=== PATIENT | female | born 1995 | race Caucasian/White ===

== ENCOUNTER 2017-08-09 10:10 | Emergency (ER) | payer OTHER, SELFPAY ==
[2017-08-09 10:39] VITALS: BP 138/84; PULSE 83; RESP 18; TEMP 36.8; O2SAT 100; BMI 20.7
[2017-08-09 10:42] LABS: UTC Influenza A Antigen Positive (Negative); UTC Influenza B Antigen Negative (Negative)
--- NOTE | 2017-08-09 11:08 | HMH.EDUTC ---
[facility] Disposition Clinical Impression: Influenza A Disposition: Home, Self-Care Condition on Discharge: Good Instructions: DI for Influenza -- Adult Additional Instructions: * Too late to start tamiflu. Most effective when started within 48 hours of symptoms onset. * Lots of rest * Increase fluids, water, gatorade, powerade, pedialyte if /toddler/child * Monitor Temp. Tylenol every 4 hours as needed no more then 5 times a day or 4000mg in 24 hours and/or ibuprofen every 6 hours as needed no more then 3200mg in 24 hours (as long as your primary care doctor has told you that it is ok to take both) for fever/aches/pain. ER if fever no less than 101 despite tylenol and Ibuprofen * You (or your child) are contagious until no fever, aches, chills x 24 hours without medication for symptoms. Follow up IMMEDIATELY for new or worsening symptoms, improvement followed by suddenly feeling worse OR no noticeable improvement over the next 48-72 hours. 911 for difficulty breathing Referrals: Sagar Moffett MD [Primary Care Provider] - (IMMEDIATELY for new or worsening symptoms, improvement followed by suddenly feeling worse OR no noticeable improvement over the next 48-72 hours. 911 for difficulty breathing ) Forms: Work/School Release Time of Disposition: 11:09 Medical Decision Making Vital Signs: 08/09/17 10:39 Temperature 98.3 F Temperature Source Temporal Artery Scan Pulse Rate [Brachial] 83 Respiratory Rate 18 Blood Pressure [Right Arm] 138/84 Blood Pressure Mean [Right Arm] 102 Blood Pressure Source [Right Arm] Automatic Cuff Blood Pressure Position [Right Arm] Sitting 02 Sat by Pulse Oximetry 100 Oxygen Delivery Method Room Air - Lab Data Lab Results 08/09/17 10:35: Influenza Type A Ag Positive A, Influenza Type B Ag Negative - Prem Inquiry Pt receiving controlled substance: No [facility] HPI - General Stated complaint: fever body aches dizzy cough runny nose sneezing Time Seen by Provider: 08/09/17 10:45 Mode of Arrival: Ambulatory Source of Information: Patient Limitations: No Limitations Description of Symptoms (Recalled from Triage Doc. by RN): FEVER, BODY ACHES, COUGH HEENT Symptoms (Recalled from RN notes): Yes Resp Symptoms (Recalled from RN notes): Yes Skin Symptoms (Recalled from RN notes): No MS Symptoms (Recalled from RN notes): No Functional Status (Recalled from RN notes): NA - History of Present Illness Provider Complaint: c/o I think I have the flu . Fever Tmax 102, aches, chills, nasal drainage, prod cough, yellow sputum since Saturday, 4 days ago. Stewart recently had the flu and only missed one day work. Dayquil/Nyquil help manage symptoms. - Related Data Home Medications Medication Instructions Recorded Confirmed citalopram 20 mg tablet 20 mg PO QDAY MDD 20MG 08/09/17 08/09/17 ergocalciferol (vitamin D2) 50,000 50,000 unit PO QWEEK MDD 0 08/09/17 08/09/17 unit capsule Allergies Allergy/AdvReac Type Severity Reaction Status Date / Time No Known Allergies Allergy Verified 08/09/17 10:44 Nuts Allergy Intermediate Hives Uncoded 08/09/17 09:04 - Worker's Comp Is this a Worker's Comp case?: No H History I have reviewed the patient's past medical history: Yes Medical History: Denies:: Diabetes Mellitus Type 1, Diabetes Mellitus Type 2, Hypertension Comment: frequent strep throat, bronchitis and upper resp infections Laterality Cases: Bilateral: Tonsillectomy Amputation: No Fractures: No - *Social History Smoking Status: Current every day smoker Tobacco Type: cigarettes # Packs/Day (cigarettes): 20 Alcohol Intake: never Alcohol Intake Frequency:: a few times a week Substance Use Type: denies use - Psychiatric History Expresses thoughts of harming self/others: None Suicide Plan Description: No Plan *Family Hx:: Diabetes ROS Obtained: Yes Appropriate systems reviewed & no add complaints except as noted - Constitutional Reports anorexia (minima
== END 2017-08-09 11:13 | disposition home or self-care (01) ==
PROVIDERS: Emergency Provider Nurse Practitioner Family; Family Provider Family Medicine; PCP Family Medicine
DX: J10.1 Influenza due to other identified influenza virus with other respiratory manifestations (principal); F17.210 Nicotine dependence, cigarettes, uncomplicated
CPT/HCPCS: 87276; 87804; 99202

== ENCOUNTER → 2018-01-20 08:42 | Outpatient (POV) | payer OTHER, SELFPAY | PROVIDERS: Family Provider Family Medicine; PCP Family Medicine; Visit Provider Physician Assistant | DX: Z00.00 Encounter for general adult medical examination without abnormal findings (principal) ==

== ENCOUNTER 2024-12-15 14:20 | Outpatient (CLI) | payer BC, SELFPAY ==
--- NOTE | 2024-12-15 14:34 | US_ITS ---
PROCEDURE INFORMATION: Exam: US Right Breast, Complete US Left Breast, Complete Exam date and time: 12/15/2024 2:42 PM Age: 29 years old Clinical indication: Palpable abnormality in the left 2 o'clock axis 10 cm from the nipple TECHNIQUE: Imaging protocol: Complete ultrasound of all four quadrants of the right breast and the retroareolar regions, including ultrasound of the axilla when performed. Complete ultrasound of all four quadrants of the left breast and the retroareolar regions, including ultrasound of the axilla when performed. COMPARISON: No relevant prior studies available. FINDINGS: ULTRASOUND: Breast ultrasound findings: Sonographic images of both breasts including the retroareolar regions, all 4 quadrants and the axilla do not demonstrate any solid masses. Minimal subcentimeter cystic change is present in the right 2 o'clock axis 2 cm from the nipple and in the left 2 o'clock axis 3 cm from the nipple. No focal findings in the left 2 o'clock axis 10 cm from the nipple where the patient reports a palpable abnormality. No architectural distortion or acoustical shadowing. No skin thickening or axillary adenopathy. IMPRESSION: A skin marker should be placed over the area of palpable concern followed by a diagnostic unilateral mammogram with spot compression views for full evaluation of the patient's complaint of a palpable abnormality. ASSESSMENT: BI-RADS Category 0: Incomplete- Need Additional Imaging Evaluation
== END 2024-12-15 23:59 | disposition home or self-care (01) ==
LOC: RAD 14:22
PROVIDERS: PCP Family Medicine; Visit Provider Physician Assistant
DX: N63.31 Unspecified lump in axillary tail of the right breast (principal); N63.32 Unspecified lump in axillary tail of the left breast
CPT/HCPCS: 76641

== ENCOUNTER 2025-01-08 13:02 | Outpatient (CLI) | payer BC, SELFPAY ==
--- OUTSIDE RECORDS SUMMARY | 2025-01-08 13:07 | XMS_ITS | Data Portability ---
Author Organization [facility] Address [address] [place] [address] Assessment Encounter Date Assessment Date Assessment LastModified by Organization Details LastModified Time 07/06/2021 07/06/2021 Service was provided using telemedicine. The patient verbally consents to virtual services and the consent is documented in the medical record prior to using the service. Patient is located at car in [facility] Provider is located at medical clinic. Names and roles of all persons participating in telemedicine services include:Avinash Henderson, pt and Jayesh Hernandes MD, doc [email or web address] Not available 07/06/2021 16:17:20 Plan of Treatment Reminders Order Date Submit Date Provider Last Modified By Organization Details Last Modified Time Details Appointments None recorde d. Lab rapid flu (A+B) 2023 [facility], [address] [place] [address] , [place], [address], 4 11:29:33 rapid strep group A, throat 2023 024 [facility], [address] [place] [address] , [place], [address], 4 11:29:23 rapid SARS CoV + SARS CoV 2 Ag, QL IA, respira tory specime n 2023 024 [facility], [address] [place] [address] , [place], [address], 4 11:29:04 rapid strep group A, throat [address], [address] [place] [address] , [place], [address], 3 10:31:19 rapid SARS CoV + SARS CoV 2 Ag, QL IA, respira tory specime n [address], [address] [place] [address] , [place], [address], 3 10:31:20 rapid flu (A+B) [address], [address] [place] [address] , [place], [address], 3 10:31:22 amylase + lipase, serum 2021 022 [facility], [address], [address], [place], [address], 2 14:12:57 unliste d lab - H.pylor i,IgG/I gM abs 2021 [facility], [address], [address], [place], [address], 2 14:12:52 TSH + free T4, serum 2021 [facility], [address], [address], [place], [address], 2 14:12:51 T3, free, serum or plasma 2021 [facility], [address], [address], [place], [address], 2 14:13:00 CBC w/ auto diff 2021 [facility], [address], [address], [place], [address], 14:12:53 vitamin D, 25-hydr oxy, total, serum 2021 [facility], [address], [place] [address], [place], [address], 14:12:58 lipid panel, serum 2021 [facility], [address], [place] [address], [place], [address], 14:12:55 CMP, serum or plasma 2021 [facility], [address], [place] [address], [place], [address], 14:12:54 HbA1c (hemogl obin A1c), blood 2021 [facility], [address], [place] [address], [place], [address], 14:12:57 vitamin B12 + folate, serum or blood 2021 [facility], [address], [address], [place], [address], 14:12:56 iron + total iron-bi nding capacit y (TIBC), serum 2021 [facility], [address], [address], [place], [address], 14:12:55 ferriti n, serum or plasma 2021 [facility], [address], [place] [address], [place], [address], 07/21/202 2 14:12:59 rapid SARS CoV + SARS CoV 2 Ag, QL IA, respira tory specime n 2020 021 [facility], [address] [place] [address] , [place], [address], 1 16:20:51 rapid strep group A, throat 2020 021 [facility], [address] [place] [address] , [place], [address], 1 16:20:51 rapid flu (A+B) 2020 021 [facility], [address] [place] [address] , [place], [address], 1 16:20:51 Referral None recorde d. Procedures staple removal (PROC) 2022 023 [email or web address] Not available 3 17:13:54 Surgeries None recorde d. Imaging US, abdomen , complet e 2021 022 [facility], [address] [place] [address] , [place], [address], 2 11:38:10 Medication Orders amoxici llin 875 mg tablet 2023 024 [facility] #[id number], [address], [id number], 4 10:36:36 ondanse meghana 4 mg disinte grating tablet 2023 024 [facility] #31873, [address], [id number], 4 10:36:31 oseltam ivir 75 mg capsule 2022 024 [facility] #33194, [address], [id number], 4 10:33:22 ondanse meghana 4 mg disinte grating tablet 2022 023 [facility] #42590, [address], [id number], 3 10:40:21 topiram ate 25 mg tablet 2021 022 [facility] #95895, [address], [id number], 3 16:37:06 topiram ate 50 mg tablet 2021 022 [facility] #44612, [address], [id number], 3 16:37:11 amoxici llin 875 mg tablet 2020 021 [email or web address] [facility] #79688, [address], [id number], 2 09:01:47 Patient TargetsNo targets recorded. Patient Instructions Encounter Date Encounter Id Patient Instructions Last Modified By Organization Details Last Modified Time 07/06/2021 [id number] Plan for next steps: Rest and push fluids. Foods as tolerated. OTC's to use reviewed. She can use throat sprays and/or lozenges, along with Ibu, maybe alternating with Tylenol. Will call or RTC if no improvement in 7-10 days, or if symptoms worsen [email or web address] Not available 07/06/2021 16:20:20 Due to the natur e of telemedicine the ability to do a physical assessment was limited to what can be accomplished by patient directed video conferencing. Those limits are understood by the patient and myself. Impression is based on history, available information and physical findings accomplished with video assistance. Chronic disease/problem list/medication list reviewed and updated where indicated. Discussed diagnosis, plan including risks, benefits and options of treatment. PMH, FHx, SHx, Surgical Hx and preventive care review were addressed as documented today as part of this visit. Medication list was reviewed and adjusted as indicated. Medication requiring a refill was addressed. Risk and benefits of any new medications were discussed and all questions answered. Advised to call for new, worsening or persistent symptoms. Level of patient risk was of low complexity due to the documented nature of presentation, the information assessment required and the nature of the development of an evaluation and treatment plan as documented. [email or web address] Not available 07/06/2021 16:19:25 02/21/2022 [id number] Start Topamax as directed. PP will call with results of labs and US. If symptoms persist or worsen, call pp or seek medical attention. [email or web address] Not available 02/21/2022 10:40:46 07/24/2023 [id number] body mass index: care instructions [email or web address] Not available 07/24/2023 10:31:15 1) Go immediatel y to ER if worsening symptoms 2) Manage fever and/or aches and pains with rotation of Acetaminophen and Ibuprofen; cough/cold symtoms with OTC cough/cold/flu medications for symptomatic management 3) Maintain hydration with water, fruit juices, broth 4) Rest at home and do not go to public places until 7 days of illness 5) Use good hand hygiene and cover mouth to cough with tissues 6) Go to ER for any difficulty in breathing, chest pain, high fevers not controlled with medication and home remedies; RTC if worsening or no improvement [email or web address] Not available 07/24/2023 10:43:46 04/10/2024 [id number] fluids, meds as directed, tylenol. rtc if not improving in 2-3 days [email or web address] Not available 04/10/2024 10:49:06 Reason for Referral None Reported. Results Created Date Observation Date Name Description Value Unit Range Abnormal Flag Note LastModifiedBy Organization Detail LastModifiedTime 07/06/20 21 07/07/2021 SARS- COV-2 , DECLAN sars-cov-2, DECLAN Not Detect ed not detect ed This nucle ic acid ampli ficat ion test was devel oped and its perfo rmanc e gen cteri stics deter mined by [facility]. Nucle ic acid ampli ficat ion tests inclu de RT-PC R and TMA. This test has not been FDA clear ed or appro marissa. This test has been autho rized by FDA under an Emerg ency Use Autho rizat ion (EUA) . This test is only autho rized for the durat ion of time the decla ratio n that circu mstan trev exist justi fying the autho rizat ion of the emerg ency use of in vitro diagn ostic tests for detec tion of SARS- CoV-2 virus and/o r diagn osis of COVID -19 infec tion under secti on 564(b )(1) of the Act, 21 U.S.C . 360bb b-3(b ) (1), unles s the autho rizat ion is termi nated or revok ed soone r. When diagn ostic testi ng is negat vonnie, the possi bilit y of a false negat vonnie resul t shoul d be consi dered in the anne xt of a patie nt's recen t expos ures and the prese nce of clini herb signs and sympt oms consi stent with COVID -19. An indiv idual witho ut sympt oms of COVID -19 and who is not irene ing SARS- CoV-2 virus would expec t to have a negat vonnie (not detec lachelle) resul t in this assay . Not Available [facility] ([facility]) [address] [facility], [place], [address], 07/07/2021 17:09:19 07/06/20 21 07/07/2021 SARS- COV-2 , DECLAN sars-cov-2, DECLAN 2 day tat Perfor med Not Available [facility] ([facility]) [address] [facility], [place], [address], 07/07/2021 17:09:19 07/06/20 21 07/06/2021 rapid flu (A+B) Flu negati ve Not Available [address] , [place], [address], 07/06/2021 16:09:59 07/06/20 21 07/06/2021 rapid strep group A, throa t Strep negati ve Not Available [address] , [place], [address], 07/06/2021 14:28:36 07/06/20 21 07/06/2021 rapid SARS CoV + SARS CoV 2 Ag, QL IA, respi rator y speci men SARS CoV antigen Negati ve Not Available [address] , [place], [address], 07/06/2021 14:28:27 02/22/20 22 02/22/2022 TSH+F REE T4 TSH 1.110 uIU/m L 0.450- 4.500 Not Available [facility] ([facility]) [address] [place], [address], 02/22/2022 14:12:51 02/22/20 22 02/22/2022 TSH+F REE T4 T4,free(dire ct) 1.34 NG/dL 0.82-1 .77 Not Available [facility] ([facility]) [address] [place], [address], 02/22/2022 14:12:51 02/22/20 22 02/22/2022 H.PYL IGNACIO,I GG/IG M ABS H. pylori, IgG abs 0.44 index _valu e 0.00-0 .79 Negat vonnie <0.80 Equiv ocal 0.80 - 0.89 Posit vonnie >0.89 Not Available [facility] ([facility]) [address] [place], [address], 02/22/2022 14:12:52 02/22/20 22 02/22/2022 H.PYL IGNACIO,I GG/IG M ABS H pylori, IgM abs <9.0 units 0.0-8. 9 Negat vonnie <9.0 Equiv ocal 9.0 - 11.0 Posit vonnie >11.0 This test was mati cristobal and its perfo rmanc e gen cteri stics deter mined by [facility]. It has not been clear ed or appro marissa by the Food and Drug Admin istra tion. Not Available [facility] ([facility]) [address] [facility], [place], [address], 02/22/2022 14:12:52 02/22/20 22 02/22/2022 CBC WITH DIFFE RENTI AL/PL ATELE T WBC 6.5 x10e3 /uL 3.4-10 .8 Not Available [facility] ([facility]) [address] [place], [address], 02/22/2022 14:12:53 02/22/20 22 02/22/2022 CBC WITH DIFFE RENTI AL/PL ATELE T RBC 4.32 x10e6 /uL 3.77-5 .28 Not Available [facility] ([facility]) [address] [facility], [place], [address], 02/22/2022 14:12:53 02/22/20 22 02/22/2022 CBC WITH DIFFE RENTI AL/PL ATELE T hemoglobin 13.9 g/dL 11.1-1 5.9 Not Available [facility] ([facility]) [address] [place], [address], 02/22/2022 14:12:53 02/22/20 22 02/22/2022 CBC WITH DIFFE RENTI AL/PL ATELE T hematocrit 41.7 % 34.0-4 6.6 Not Available [facility] ([facility]) [address] [place], [address], 02/22/2022 14:12:53 02/22/20 02/22/2022 CBC WITH DIFFE RENTI AL/PL ATELE T MCV 97 fL 79-97 Not Available [facility] ([facility]) [address] [facility], [place], [address], 02/22/2022 14:12:53 02/22/20 22 02/22/2022 CBC WITH DIFFE RENTI AL/PL ATELE T MCH 32.2 pg 26.6-3 3.0 Not Available [facility] ([facility]) [address] [facility], [place], [address], 02/22/2022 14:12:53 02/22/20 22 02/22/2022 CBC WITH DIFFE RENTI AL/PL ATELE T MCHC 33.3 g/dL 31.5-3 5.7 Not Available [facility] ([facility]) [address] [facility], [place], [address], 02/22/2022 14:12:53 02/22/20 22 02/22/2022 CBC WITH DIFFE RENTI AL/PL ATELE T RDW 11.5 % 11.7-1 5.4 below low normal Not Available [facility] ([facility]) [address] [facility], [place], [address], 02/22/2022 14:12:53 02/22/20 22 02/22/2022 CBC WITH DIFFE RENTI AL/PL ATELE T platelets 321 x10e3 /uL 150-45 0 Not Available [facility] ([facility]) [address] [place], [address], 02/22/2022 14:12:53 02/22/20 22 02/22/2022 CBC WITH DIFFE RENTI AL/PL ATELE T neutrophils 62 % not estab. Not Available [facility] ([facility]) [address] [facility], [place], [address], 02/22/2022 14:12:53 02/22/20 22 02/22/2022 CBC WITH DIFFE RENTI AL/PL ATELE T lymphs 27 % not estab. Not Available [facility] ([facility]) [address] [facility], [place], [address], 02/22/2022 14:12:53 02/22/20 22 02/22/2022 CBC WITH DIFFE RENTI AL/PL ATELE T monocytes 8 % not estab. Not Available [facility] ([facility]) [address] [facility], [place], [address], 02/22/2022 14:12:53 02/22/20 22 02/22/2022 CBC WITH DIFFE RENTI AL/PL ATELE T eos 1 % not estab. Not Available [facility] ([facility]) [address] [facility], [place], [address], 02/22/2022 14:12:53 02/22/20 22 02/22/2022 CBC WITH DIFFE RENTI AL/PL ATELE T basos 1 % not estab. Not Available [facility] ([facility]) [address] [facility], [place], [address], 02/22/2022 14:12:53 02/22/20 22 02/22/2022 CBC WITH DIFFE RENTI AL/PL ATELE T immature cells OXYHYDROGEN WELDER Not Available [facility] ([facility]) [address] [facility], [place], [address], 02/22/2022 14:12:53 02/22/20 22 02/22/2022 CBC WITH DIFFE RENTI AL/PL ATELE T neutrophils (absolute) 4.1 x10e3 /uL 1.4-7. 0 Not Available [facility] ([facility]) [address] [place], [address], 02/22/2022 14:12:53 02/22/20 22 02/22/2022 CBC WITH DIFFE RENTI AL/PL ATELE T lymphs (absolute) 1.8 x10e3 /uL 0.7-3. 1 Not Available [facility] ([facility]) [address] [facility], [place], [address], 02/22/2022 14:12:53 02/22/20 22 02/22/2022 CBC WITH DIFFE RENTI AL/PL ATELE T monocytes(ab solute) 0.5 x10e3 /uL 0.1-0. 9 Not Available [facility] ([facility]) [address] [facility], [place], [address], 02/22/2022 14:12:53 02/22/20 22 02/22/2022 CBC WITH DIFFE RENTI AL/PL ATELE T eos (absolute) 0.1 x10e3 /uL 0.0-0. 4 Not Available [facility] ([facility]) [address] [facility], [place], [address], 02/22/2022 14:12:53 02/22/20 22 02/22/2022 CBC WITH DIFFE RENTI AL/PL ATELE T baso (absolute) 0.1 x10e3 /uL 0.0-0. 2 Not Available [facility] ([facility]) [address] [facility], [place], [address], 02/22/2022 14:12:53 02/22/20 22 02/22/2022 CBC WITH DIFFE RENTI AL/PL ATELE T immature granulocytes 1 % not estab. Not Available [facility] ([facility]) [address] [place], [address], 02/22/2022 14:12:53 02/22/20 22 02/22/2022 CBC WITH DIFFE RENTI AL/PL ATELE T immature grans (abs) 0.0 x10e3 /uL 0.0-0. 1 Not Available [facility] ([facility]) [address] [facility], [place], [address], 02/22/2022 14:12:53 02/22/20 22 02/22/2022 CBC WITH DIFFE RENTI AL/PL ATELE T NRBC OXYHYDROGEN WELDER Not Available [facility] ([facility]) [address] [facility], [place], [address], 02/22/2022 14:12:53 02/22/20 22 02/22/2022 CBC WITH DIFFE RENTI AL/PL ATELE T hematology comments: OXYHYDROGEN WELDER Not Available [facility] ([facility]) [address] [facility], [place], [address], 02/22/2022 14:12:53 02/22/20 22 02/22/2022 COMP. METAB OLIC PANEL (14) glucose 85 mg/dL 65-99 Not Available [facility] ([facility]) [address] [facility], [place], [address], 02/22/2022 14:12:54 02/22/20 22 02/22/2022 COMP. METAB OLIC PANEL (14) BUN 10 mg/dL 6-20 Not Available [facility] ([facility]) [address] [facility], [place], [address], 02/22/2022 14:12:54 02/22/20 22 02/22/2022 COMP. METAB OLIC PANEL (14) creatinine 0.79 mg/dL 0.57-1 .00 Not Available [facility] ([facility]) [address] [facility], [place], [address], 02/22/2022 14:12:54 02/22/20 22 02/22/2022 COMP. METAB OLIC PANEL (14) eGFR 104 mL/mi n/1.7 3 >59 Not Available [facility] ([facility]) [address] [place], [address], 02/22/2022 14:12:54 02/22/20 22 02/22/2022 COMP. METAB OLIC PANEL (14) BUN/creatini ne ratio 13 9-23 Not Available [facility] ([facility]) [address] [place], [address], 02/22/2022 14:12:54 02/22/20 22 02/22/2022 COMP. METAB OLIC PANEL (14) sodium 141 mmol/ L 134-14 4 Not Available [facility] ([facility]) [address] [facility] [place], [address], 02/22/2022 14:12:54 02/22/20 22 02/22/2022 COMP. METAB OLIC PANEL (14) potassium 4.4 mmol/ L 3.5-5. 2 Not Available [facility] ([facility]) [address] [facility] [place], [address], 02/22/2022 14:12:54 02/22/20 22 02/22/2022 COMP. METAB OLIC PANEL (14) chloride 107 mmol/ L 96-106 above high normal Not Available [facility] ([facility]) [address] [place], [address], 02/22/2022 14:12:54 02/22/20 22 02/22/2022 COMP. METAB OLIC PANEL (14) carbon dioxide, total 22 mmol/ L 20-29 Not Available [facility] ([facility]) [address] [place], [address], 02/22/2022 14:12:54 02/22/20 22 02/22/2022 COMP. METAB OLIC PANEL (14) calcium 9.2 mg/dL 8.7-10 .2 Not Available [facility] ([facility]) [address] [place], [address], 02/22/2022 14:12:54 02/22/20 22 02/22/2022 COMP. METAB OLIC PANEL (14) protein, total 7.2 g/dL 6.0-8. 5 Not Available [facility] ([facility]) [address] [place], [address], 02/22/2022 14:12:54 02/22/20 22 02/22/2022 COMP. METAB OLIC PANEL (14) albumin 4.7 g/dL 3.9-5. 0 Not Available [facility] ([facility]) [address] [facility], [place], [address], 02/22/2022 14:12:54 02/22/20 22 02/22/2022 COMP. METAB OLIC PANEL (14) globulin, total 2.5 g/dL 1.5-4. 5 Not Available [facility] ([facility]) [address] [facility], [place], [address], 02/22/2022 14:12:54 02/22/20 22 02/22/2022 COMP. METAB OLIC PANEL (14) A/G ratio 1.9 1.2-2. 2 Not Available [facility] ([facility]) [address] [facility], [place], [address], 02/22/2022 14:12:54 02/22/20 22 02/22/2022 COMP. METAB OLIC PANEL (14) bilirubin, total 0.3 mg/dL 0.0-1. 2 Not Available [facility] ([facility]) [address] [facility], [place], [address], 02/22/2022 14:12:54 02/22/20 22 02/22/2022 COMP. METAB OLIC PANEL (14) alkaline phosphatase 92 IU/L 44-121 Not Available [facility] ([facility]) [address] [facility], [place], [address], 02/22/2022 14:12:54 02/22/20 22 02/22/2022 COMP. METAB OLIC PANEL (14) AST (SGOT) 14 IU/L 0-40 Not Available [facility] ([facility]) [address] [place], [address], 02/22/2022 14:12:54 02/22/20 22 02/22/2022 COMP. METAB OLIC PANEL (14) ALT (SGPT) 15 IU/L 0-32 Not Available [facility] ([facility]) [address] [place], [address], 02/22/2022 14:12:54 02/22/20 22 02/22/2022 LIPID PANEL cholesterol, total 114 mg/dL 100-19 9 Not Available [facility] ([facility]) [address] [place], [address], 02/22/2022 14:12:55 02/22/20 22 02/22/2022 LIPID PANEL triglyceride s 40 mg/dL 0-149 Not Available [facility] ([facility]) [address] [place], [address], 02/22/2022 14:12:55 02/22/20 22 02/22/2022 LIPID PANEL HDL cholesterol 45 mg/dL >39 Not Available [facility] ([facility]) [address] [place], [address], 02/22/2022 14:12:55 02/22/20 22 02/22/2022 LIPID PANEL VLDL cholesterol herb 10 mg/dL 5-40 Not Available [facility] ([facility]) [address] [place], [address], 02/22/2022 14:12:55 02/22/20 22 02/22/2022 LIPID PANEL LDL chol calc ([facility]) 59 mg/dL 0-99 Not Available [facility] ([facility]) [address] [place], [address], 02/22/2022 14:12:55 02/22/20 22 02/22/2022 LIPID PANEL comment: OXYHYDROGEN WELDER Not Available [facility] ([facility]) [address] [place], [address], 02/22/2022 14:12:55 02/22/20 22 02/22/2022 IRON AND TIBC iron bind.cap.(TI BC) 269 ug/dL 250-45 0 Not Available [facility] ([facility]) [address] [place], [address], 02/22/2022 14:12:55 02/22/20 22 02/22/2022 IRON AND TIBC UIBC 199 ug/dL 131-42 5 Not Available [facility] ([facility]) [address] [place], [address], 02/22/2022 14:12:55 02/22/20 22 02/22/2022 IRON AND TIBC iron 70 ug/dL 27-159 Not Available [facility] ([facility]) [address] [place], [address], 02/22/2022 14:12:55 02/22/20 22 02/22/2022 IRON AND TIBC iron saturation 26 % 15-55 Not Available [facility] ([facility]) [address] [place], [address], 02/22/2022 14:12:55 02/22/20 22 02/22/2022 VITAM IN B12 AND FOLAT E vitamin B12 497 pg/mL 232-12 45 Not Available [facility] ([facility]) [address] [place], [address], 02/22/2022 14:12:56 02/22/20 22 02/22/2022 VITAM IN B12 AND FOLAT E folate (folic acid), serum 4.6 NG/mL >3.0 A serum folat e mimi ntrat ion of less than 3.1 ng/mL is consi dered to repre sent clini herb defic iency . Not Available [facility] ([facility]) [address] [place], [address], 02/22/2022 14:12:56 02/22/20 22 02/22/2022 MICA+L IPASE amylase 39 U/L 31-110 Not Available [facility] ([facility]) [address] [facility] [place], [address], 02/22/2022 14:12:57 02/22/20 22 02/22/2022 MICA+L IPASE lipase 18 U/L 14-72 Not Available [facility] ([facility]) [address] [facility], [place], [address], 02/22/2022 14:12:57 02/22/20 22 02/22/2022 HEMOG LOBIN A1C hemoglobin A1C 5.0 % 4.8-5. 6 Predi abete s: 5.7 - 6.4 Diabe justice: >6.4 Glyce tanvir contr ol for adult s with diabe justice: <7.0 Not Available [facility] ([facility]) [address] [facility], [place], [address], 02/22/2022 14:12:57 02/22/20 22 02/22/2022 VITAM IN D, 25-HY DROXY vitamin D, 25-hydroxy 36.9 NG/mL 30.0-1 00.0 Vitam in D defic iency has been defin ed by the Insti tute of Medic ine and an Endoc rine Socie ty pract ice guide line as a level of serum 25-OH vitam in D less than 20 ng/mL (1,2) . The Endoc rine Socie ty went on to [facility] er defin e vitam in D insuf ficie ncy as a level betwe en 21 and 29 ng/mL (2). 1. IOM (Inst itute of Medic ine). 2009. Dieta ry refer ence intak es for calci um and D. Rosmery oviedo [place]: The Natio nal [facility] Press . 2. Napoleon cabral [place], Pawel kimball [place], Cassidy off-F errar i ENCARNACION, et al. Evalu ation , treat ment, and preve ntion of vitam in D defic iency : an Endoc rine Socie ty clini herb pract ice guide line. JCEM. 2010; 96(7) :1911 -30. Not Available [facility] ([facility]) [address] [facility] [place], [address], 02/22/2022 14:12:58 02/22/20 22 02/22/2022 JOSE F TIN ferritin 58 NG/mL 15-150 Not Available [facility] ([facility]) [address] [facility], [place], [address], 02/22/2022 14:12:59 02/22/20 22 02/22/2022 TRIIO DOTHY TANNER E (T3), FREE triiodothyro nine (T3), free 3.7 pg/mL 2.0-4. 4 Not Available [facility] ([facility]) [address] [facility], [place], [address], 02/22/2022 14:13:00 07/24/20 23 07/24/2023 rapid flu (A+B) Flu positi ve Not Available [address] , [place], [address], 07/24/2023 08:18:29 07/24/20 23 07/24/2023 rapid flu (A+B) Type A Not Available [address] , [place], [address], 07/24/2023 08:18:29 07/24/20 23 07/24/2023 rapid SARS CoV + SARS CoV 2 Ag, QL IA, respi rator y speci men SARS CoV antigen Negati ve Not Available [address] , [place], [address], 07/24/2023 08:18:18 07/24/20 23 07/24/2023 rapid strep group A, throa t Strep negati ve Not Available [address] , [place], [address], 07/24/2023 08:18:07 07/24/20 23 07/24/2023 rapid strep group A, throa t Culture No Not Available [address] , [place], [address], 07/24/2023 08:18:07 04/10/20 24 04/10/2024 rapid SARS CoV + SARS CoV 2 Ag, QL IA, respi rator y speci men SARS CoV antigen Negati ve Not Available [address] , [place], [address], 04/10/2024 10:10:35 04/10/20 24 04/10/2024 rapid strep group A, throa t Strep negati ve Not Available [address] , [place], [address], 04/10/2024 10:10:29 04/10/20 24 04/10/2024 rapid strep group A, throa t Culture No Not Available [address] , [place], [address], 04/10/2024 10:10:29 04/10/20 24 04/10/2024 rapid flu (A+B) Flu negati ve Not Available [address] , [place], [address], 04/10/2024 10:10:23 04/10/20 24 04/10/2024 rapid flu (A+B) Type Both A & B Not Available [address] , [place], [address], 04/10/2024 10:10:23 02/24/20 22 US, abdom en, compl ete No observ ation record ed. [address] , [place], [address], 02/27/2022 12:47:18 Result Notes None recorded. Problems Name Problem SNOMED Code Status Onset Date Resolution Date Notes Provider Name and Address Organization Details Recorded Time Exposure to SARS-CoV-2 Active 021 Giselle López [place], [place] - [facility] 1 17:21:53 Fever 228388277 Active 023 Dharmesh Neff, DIGITAL PRESS OPERATOR [address], [place], [address], [facility] - [facility] 3 09:52:29 Influenza caused by Influenza A virus 991344835 Active 023 Dharmesh Tawanda, DIGITAL PR[employer] OPERATOR [address], [place], [address], [facility] 3 10:30:52 Problem Notes None recorded. Procedures Surgical History Date Name Laterality Status Provider Name and Address Organization Details Recorded Time 3 Suture/Stapl e removal completed Nupur Chen MD [address], [place], [address], [facility] - [facility] 04/16/2023 17:09:04 tonsilectomy /adenoids completed Aislinn Russell [facility] 02/21/2022 09:05:08 Imaging Results None recorded. Procedure Notes None recorded. Medical Equipment None Reported. Allergies No known drug allergies Medications Name Sig Start Date Stop Date Status Note LastModified by Organization Details LastModified Time neomycin-po lymyxin-hyd rocort 3.5 mg/mL-10,00 0 unit/mL-1 % ear solution INSTILL 3 DROPS IN AFFECTED EAR THREE TIMES DAILY 04/16 completed Not Available Not Available Not Available ondansetron HCl 4 mg tablet TAKE 1 TABLET BY MOUTH EVERY 4 HOURS NEEDED FOR NAUSEA 02/21 completed Not Available Not Available Not Available topiramate 25 mg tablet TAKE 1 TABLET BY MOUTH TWICE DAILY FOR 7 DAYS 04/16 completed Not Available Not Available Not Available amoxicillin 875 mg tablet TAKE 1 TABLET BY MOUTH EVERY 12 HOURS FOR 10 DAYS active Not Available Not Available No t Available oseltamivir 75 mg capsule TAKE 1 CAPSULE BY MOUTH TWICE DAILY FOR 5 DAYS 04/10 completed Not Available Not Available Not Available dexamethaso ne 4 mg tablet TAKE 1 TABLET BY MOUTH TWICE DAILY FOR 5 DAYS 04/16 completed Not Available Not Available Not Available methylpredn isolone 4 mg tablets in a dose pack 04/16 completed Not Available Not Available Not Available bromphenira mine-pseudo ephedrine-D M 2 mg-30 mg-10 mg/5 mL oral syrup TAKE 5-10 ML BY MOUTH FOUR TIMES DAILY NEEDED 04/16 completed Not Available Not Available Not Available ondansetron 4 mg disintegrat ing tablet DISSOLVE 1 TABLET BY MOUTH EVERY 4 TO 6 HOURS F FOR NAUSEA AND VOMITING ASSOCIATE D WITH FLU active Not Available Not Available No t Available topiramate 50 mg tablet TAKE 1 TABLET BY MOUTH TWICE DAILY 04/16 completed Not Available Not Available Not Available Nexplanon 68 mg subdermal implant Inject 1 implant every 3 months by subcutane ous route as directed. active Not Available Not Available No t Available Vitals Date Recorded Body height Body temperature Heart rate Oxygen saturation Oxygen saturation in Arterial blood by Pulse oximetry Respiratory rate Body mass index (BMI) Body weight Systolic blood pressure Diastolic blood pressure Provider Name and Address Organization Details Last Updated DateTime 2 167.64 cm 98.7 [degF] 78 /min 98 % 98 % 18 /min 23.4 kg/m2 60984.9 4 g 110 mm[Hg] 88 mm[Hg] Aislinn Russell [place] - [facility] 2 09:00:54 Date Recorded Body height Body mass index (BMI) Body weight Body temperature Heart rate Oxygen saturation Oxygen saturation in Arterial blood by Pulse oximetry Respiratory rate Systolic blood pressure Diastolic blood pressure Provider Name and Address Organization Details Last Updated DateTime 4 167.64 cm 23.2 kg/m2 00144.3 g 98.4 [degF] 114 /min 98 % 98 % 18 /min 122 mm[Hg] 76 mm[Hg] Lorie Perez [place] - [facility] 4 10:09:29 Date Recorded Body height Body mass index (BMI) Body weight Oxygen saturation Oxygen saturation in Arterial blood by Pulse oximetry Heart rate Systolic blood pressure Diastolic blood pressure Provider Name and Address Organization Details Last Updated DateTime 3 167.64 cm 22.3 kg/m2 02354.1 5 g 99 % 99 % 104 /min 110 mm[Hg] 78 mm[Hg] Desire Barreto in [facility] 3 16:39:28 Date Recorded Body height Body mass index (BMI) Body weight Body temperature Heart rate Oxygen saturation Oxygen saturation in Arterial blood by Pulse oximetry Respiratory rate Systolic blood pressure Diastolic blood pressure Provider Name and Address Organization Details Last Updated DateTime 3 167.64 cm 22.3 kg/m2 11730.7 5 g 98.4 [degF] 91 /min 99 % 99 % 18 /min 128 mm[Hg] 80 mm[Hg] Trice Simmons [facility] 3 10:04:42 Social History Question Answer Notes LastModified by Organizat ion Details LastModified Time Tobacco Smoking Status Current Every Day Smoker Desire Nixon carl, [facility] 04/16/2023 16:37:36 Do You Have An Advance Directive? No [email or web address] Information not available 02/21/2022 Are You Blind Or Do You Have Difficulty Seeing? No Information not available 02/21/2022 What Is Your Level Of Caffeine Consumption? Moderate [email or web address] Information not available 02/21/2022 Are You Deaf Or Do You Have Serious Difficulty Hearing? No Information not available 02/21/2022 What Type Of Diet Are You Following? REGULAR Information not available 02/21/2022 What Is The Highest Grade Or Level Of School You Have Completed Or The Highest Degree You Have Received? [id number] [email or web address] Information not available 02/21/2022 Have There Been Any Changes To Your Family Or Social Situation? Yes [email or web address] Information no t available 02/21/2022 What Is The Fluoride Status Of Your Home? Unknown [email or web address] Information not available 02/21/2022 Do You Have A Medical Power Of Earrings Fabricator? No [email or web address] Information not available 02/21/2022 What Was The Date Of Your Most Recent Tobacco Screening? 04/10/2024 Information not available 04/10/2024 What Is Your Relationship Status? Single [email or web address] Information not available 02/21/2022 Are You Sexually Active? No [email or web address] Information not available 02/21/2022 Do You Have Smoke And Carbon Monoxide Detectors In Your Home? Yes [email or web address] Information not available 02/21/2022 Are You Passively Exposed To Smoke? Yes Information no t available 02/21/2022 How Much Tobacco Do You Smoke? 0.5 PPD [email or web address] Information not available 04/16/2023 Has Tobacco Cessation Counseling Been Provided? Yes Information not available 02/21/2022 On What Date Was Tobacco Cessation Counseling Provided? 04/10/2024 Information not available 04/10/2024 Do You Have Difficulty Walking Or Climbing Stairs? No [email or web address] Information not available 02/21/2022 How Many Years Have You Used E-cigarettes Or Vape? 1 Information not available 02/21/2022 Sex: Female Functional Status Question Answer Note LastModified by [employer] Details LastModified Time Do you use any illicit or recreational drugs? No [email or web address] Information not available 02/21/2022 Do you or have you ever used any other forms of tobacco or nicotine? Yes [email or web address] Information not available 02/21/2022 What is your level of alcohol consumption? Occasional Information not available 02/21/2022 Do you or have you ever used smokeless tobacco? Never used smokeless tobacco [email or web address] Information not available 02/21/2022 Are you currently employed? Yes [email or web address] colleen [email or web address] Information not available 02/21/2022 Do you have transportation difficulties? No [email or web address] Information not available 02/21/2022 Are you able to walk? YESWOREST [email or web address] Information not available 02/21/2022 Do you have difficulty doing errands alone? No [email or web address] Information not available 02/21/2022 Are you able to care for yourself? Yes Information n ot available 02/21/2022 Do you have difficulty dressing or bathing? No [email or web address] Information not available 02/21/2022 Do you or have you ever used e-cigarettes or vape? Current user of electronic cigarettes [email or web address] Information not available 02/21/2022 What is your exercise level? None [email or web address] Information not available 02/21/2022 Mental Status Question Answer Note LastModified by Organizat ion Details LastModified Time Do you feel stressed (tense, restless, nervous, or anxious, or unable to sleep at night)? [id number] [email or web address] Information not available 02/21/2022 Do you have difficulty concentrating, remembering or making decisions? No [place] [address] Information no t available 02/21/2022 Family History Nothing Reported. Medical History No medical history recorded. Gynecological History Statement/Question Response Menses Monthly N Current Control Method Implant LMP Obstetrics History GPAL:G 0 P 0 0 0 0 Past Encounters Encounter ID Performer Location Encounter Start Date Encounter Closed Date Diagnosis/Indication Diagnosis SNOMED-CT Code Diagnosis ICD10 Code Diagnosis Note [id number] Desire Hernandes MD [address] [place] [address] 07/06/2021 13:51:24 07/06/2021 16:55:10 Pharyngitis 158245666 J02.9 [id number] Naa Ewing APRN [address] [place] [address] 02/21/2022 08:44:32 02/21/2022 09:41:41 General examination of patient 953780435 Z00.00 Screening for cardiovascular system disease 437786828 Z13.6 Exercises education, guidance, and counseling 573971216 Z71.82 Dietary ma nagement surveillance 741891958 Z71.3 Thyroid di sorder screening 818134677 Z13.29 Diabetes m ellitus screening 610959206 Z13.1 Fatigue 14114758 R53.83 Depression screening 171 115132 Z13.31 Cobalamin deficiency 190 660062 E53.8 Vitamin D deficiency 347 13874 E55.9 Migraine 99482050 G43.90 9 Abdominal pain 20636470 R10.9 [id number] Nupur Chen MD [address] [place] [address] 04/16/2023 16:30:03 04/16/2023 17:18:50 Simple laceration of scalp 498020586 S01.01XD History of concussion injury of brain 6264841835 7083525 Z87.217 [id number] Dharmesh Neff, [address] [place] [address] 07/24/2023 09:46:52 07/24/2023 10:44:36 Fever 354860008 R50.9 Body mass index 20-24 - normal 204876826 Z68.22 Influenza caused by Influenza A virus 303205542 J09.X2 Pt presents today with flu like symptoms. Flu swab was positive in clinic today. Advised increasing fluids, rest and continuing tylenol and motrin as needed for fever and discomfort . Begin meds as written today. Pt verbalizes understand ing and agrees. [id number] Regina Eastman [address] [place] [address] 04/10/2024 09:47:12 04/10/2024 12:04:01 Pharyngitis 576407483 J02.9 with lymphadeno linh Acute righ t otitis media 909988149 H66.91 Health Concerns Section Related Observation LastModified by Organization Detai ls LastModified Time None Recorded Concern Status LastModified by Organization Details LastModified Time None Recorded Advance Directives Directive N: Payers Insurance Date Sequence Insurance Name Policy Number Policy Ojeda Covered Member ID Ojeda Member ID Guarantor Name 04/16/2023 1 [employer] - [employer] (TRADITIONAL) RKING Avinash Henderson [id number] Avinash Henderson 04/10/2024 1 [place] [id number] Avinash Henderson [id number] Avinash Henderson 09/27/2021 1 *SELF PAY* An fransisco Henderson Notes Date Note Type Note Provider Name and Address Organization Details Recorded Time 07/06/2021 text/html sore throat, fever, body aches ,congestion ,S.O.B. weak X 1 DAY, min po, hurts too much Pt not vaccinated Desire Hernandes MD [address], [place], [address], [place] - [facility] 07/06/2021 16:20:56 02/21/2022 text/html Avinash is a 27 year old female that presents today for her AWE. Presents with multiple complaints.She states that she has had been increasingly fatigued, little to no motivation, decreased sex drive, more frequent migraines for the past couple of months. States I don't feel like myself. Use to take supplements for Vitamin D and injections for b12. Denies feeling depressed.Has had migraines since she was a pre-teen. Before Tylenol, Ibuprofen and OTC medication's were beneficial but they do not seem to help anymore. She states that she gets migraines 3-4 times a week and last anywhere from 1-5 hours. Usually the only thing that helps is resting, turning off lights and sound. Denies aura.Since she had a stomach virus back in September, she has had abdominal pain with diarrhea. She states that usually these symptoms occur 30-40min after eating. The abdominal pain can be severe but is relieved with defecation. Stool is always loose in consistency. Was told in 2016 she had sludge in her gallbladder. Doesn't matter what she eats, these symptoms are still persistant Severe abdominal pain, relief w/ defecation. Occurs daily. Naa Ewing APRN [address], [place], [address], [employer] - [facility] 02/21/2022 10:41:53 04/16/2023 text/html new to this provider here for staple removal laceration right side of head er note not available at this time brief LOC with amnesia for the event nausea and vomiting the day of the injury has been resting this week feels well now except for some scalp tenderness at site of injury Nupur Chen MD [address], [place], [address], [employer] - [facility] 04/16/2023 17:15:59 07/24/2023 text/html Avinash is a 28yo female that presents to the office today for fever, body aches, sore throat, nausea, congestion, and cold sweats. Denies cough. symptoms started late Saturday night. Denies pharyngitis, tender cervical lymph nodes, aphagia, cough, dyspnea, hoarseness, rash, rhinorrhea, headache, malaise, diarrhea, dysgeusia, dysosmia, dyspnea, vomiting Dharmesh Neff APRN [address], [place], [address], [employer] - [facility] 07/24/2023 10:44:27 04/10/2024 text/html Avinash presents today with complaints of sore throat that started last week. Says last night she became nauseated with body aches and chills with sinus pressure and headaches.Has been around Flu and Covid. as above, sore throat started 7 days ago and remaining symptoms started last night. Regina Eastman, DIGITAL PRESS OPERATOR [address], [place], [address], [place] - [facility] 04/10/2024 10:49:22 OBGyn Episode No OBEpisode recorded.
--- NOTE | 2025-01-08 13:09 | MM_ITS ---
PROCEDURE INFORMATION: Exam: Bilateral Diagnostic Breast Tomosynthesis Exam date and time: 01/08/2025 1:28 PM Age: 29 years old Clinical indication: History of 2 o'clock left palpable lump. Negative bilateral breast ultrasound 12/15/2024. Now, the patient reports bilateral upper-outer posterior palpable breast lumps. Diagnostic mammogram was recommended to complete the palpable off workup TECHNIQUE: Imaging protocol: Bilateral Diagnostic tomosynthesis and 2D mammography including computer-aided detection (CAD) when performed. Unilateral or bilateral exam. COMPARISON: 1. US BREAST LT COMPLETE 12/15/2024 2:52 PM 2. US BREAST RT COMPLETE 12/15/2024 2:42 PM FINDINGS: MAMMOGRAPHY: Breast composition: There are scattered areas of fibroglandular density. Breast mammogram findings: No mass, architectural distortion, or suspicious cluster of calcifications has developed to suggest malignancy. No axillary adenopathy. IMPRESSION: No mammographic evidence of malignancy. Recommend annual screening mammography beginning at age 40 unless otherwise clinically indicated. ASSESSMENT: BI-RADS Category 1: Negative.
== END 2025-01-08 23:59 | disposition home or self-care (01) ==
LOC: RAD 13:04
PROVIDERS: PCP Family Medicine; Visit Provider Physician Assistant
DX: R92.313 Mammographic fatty tissue density, bilateral breasts (principal); R92.8 Other abnormal and inconclusive findings on diagnostic imaging of breast
CPT/HCPCS: 77062; 77066; G0279